=== PATIENT | male | born 1995 | race Caucasian/White ===

== ENCOUNTER 2017-03-04 18:09 | Emergency (ER) | payer OTHER ==
[~2017-03-04 18:09] MED LIST: ISOVUE-370 76%-LOCM 1 ML ONE
[2017-03-04] MEDS ORDERED: Morphine 4 MG/ML Carpuject ONE ×2 (20:09→21:20)
[2017-03-04] MEDS ORDERED: methylPREDNISolone Sod Succ/PF 125 MG/2 ML VIAL ONE (20:09)
[2017-03-04] MEDS ORDERED: Ondansetron HCl/PF 4 MG/2 ML Vial ONE (20:17)
[2017-03-04 21:06] LABS: ALT (SGPT) 19 U/L (8-55); AST (SGOT) 17 U/L (5-34); Albumin 4.7 g/dL (3.5-5.0); Alkaline Phosphatase 103 U/L (40-150); Anion Gap 20 mmol/L (10-20); BUN (Urea Nitrogen) 13 mg/dL (8.9-20.6); Bilirubin, Total 0.9 mg/dL (0.2-1.2); Calc. Creatinine Clearance 0 mL/min (70-130); Calcium 10.6 mg/dL (7.8-10.44); Carbon Dioxide 20 mmol/L (22-29); Chloride 104 mmol/L (98-107); Estimated GFR-MDRD 76; Globulin 4.4 g/dL (2.4-3.5); Glucose 100 mg/dL (70-105); Lipase 29 U/L (8-78); Potassium 4.1 mmol/L (3.5-5.1); Protein, Total 9.1 g/dL (6.0-8.3); Sodium 140 mmol/L (136-145)
[2017-03-04 21:28] LABS: Hemoglobin 15.2 g/dL (14.0-18.0); Lymphocytes 14 % (21-51); MDiff Complete? YES; Mean Corpuscular HGB CONC 32.5 g/dL (32.0-36.0); Mean Corpuscular Hemoglobin 28.1 pg (27.0-31.0); Mean Corpuscular Volume 86.5 fl (80.0-94.0); Mean Platelet Volume 11.5 fL (7.4-10.4); Monocytes 4 % (0-10); Neutrophil 80 % (42-75); PLT Morphology Comment PLT clumps seen-ADEQ; RBC Distribution Width 12.7 % (11.5-14.5); White Blood Cell (WBC) Count 15.3 thou/uL (4.8-10.8)
--- NOTE | 2017-03-04 22:19 | CT ---
CT ABDOMEN AND PELVIS WITH IV CONTRAST 03/04/17 PROVIDED CLINICAL HISTORY: Back pain. FINDINGS: Comparison is made with the study dated 03/14/16. The visualized lung bases are free of significant opacity. There is an 8-9 mm calculus present in the inferior pole of the right kidney. There is moderate-sever e right hydronephrosis and right hydroureter. There are two ureteral calculi present in the distal ri ght ureter. The smaller of these measures less than 1 mm. The large measures about 7 mm and is close to the UV junction. No additional urinary tract calculi are evident. There is no bowel dilatation, inflammatory fat stranding, free fluid or free air apparent. Changes of prior colostomy are again noted in the right lower quadrant. The osseous structures demonstrate no concerning osteoblastic or osteolytic lesions. IMPRESSION: 1. Obstructing distal right ureteral calculi. 2. Right renal calculus. POS: [facility]
[2017-03-04 23:04] LABS: Bilirubin Negative (Negative); Blood, Urine Moderate (Negative); Clarity CLEAR (Clear); Glucose, Urine (Dipstick) Negative (Negative); Leukocyte Negative (Negative); Nitrite Negative (Negative); Protein, Urine (Dipstick) Negative (Neg-Trace); Specific Gravity, Urine 1.044 (1.002-1.036); Urobilinogen 0.2 mg/dL (0.2-1.0)
[2017-03-04 23:06] LABS: Bacteria/HPF None Seen HPF (None Seen); Hyaline Casts/LPF 0-3 HYALINE CAST LPF (0-3 Hyaline); RBC/HPF 21-50 HPF (0-3); Squamous Epithelial None Seen HPF (0-3); WBC/HPF 0-3 HPF (0-3)
== END 2017-03-05 00:15 | disposition home or self-care (01) ==
LOC: ERS 18:09
DX: N13.2 Hydronephrosis with renal and ureteral calculous obstruction (principal); F17.200 Nicotine dependence, unspecified, uncomplicated
CPT/HCPCS: 74177; 80053; 81003; 81015; 83690; 85025; 96374; 96375; 96376; 99406; J2270; J2405; J2930

== ENCOUNTER 2018-05-04 01:49 | Emergency (ER) | payer OTHER ==
[2018-05-04] MEDS ORDERED: Ondansetron PF 4 MG/2 ML Vial ONE (02:23)
[2018-05-04] MEDS ORDERED: Morphine 4 MG/ML VIAL ONE ×2 (02:23→03:41)
[2018-05-04 02:34] LABS: Mean Corpuscular HGB CONC 33.3 g/dL (32.0-36.0); Mean Corpuscular Hemoglobin 28.4 pg (27.0-31.0); Mean Corpuscular Volume 85.1 fL (78.0-98.0); Mean Platelet Volume 9.2 fL (7.4-10.4); Platelet Count 377 thou/uL (130-400); RBC Distribution Width 12.3 % (11.5-14.5); Red Blood Cell (RBC) Count 4.94 mill/uL (4.70-6.10); White Blood Cell (WBC) Count 15.3 thou/uL (4.8-10.8)
[2018-05-04 02:35] LABS: Eosinophils 2 % (0-10); Lymphocytes 51 % (21-51); MDiff Complete? YES; Monocytes 11 % (0-10); Neutrophil 36 % (42-75); Platelet Morphology Comment Appears Adequate
[2018-05-04 02:42] LABS: ALT (SGPT) 13 U/L (8-55); AST (SGOT) 15 U/L (5-34); Albumin 4.4 g/dL (3.5-5.0); Alkaline Phosphatase 88 U/L (40-150); Anion Gap 18 mmol/L (10-20); BUN (Urea Nitrogen) 13 mg/dL (8.9-20.6); Bilirubin, Total 0.6 mg/dL (0.2-1.2); Calc. Creatinine Clearance 0 mL/min (70-130); Calcium 9.7 mg/dL (7.8-10.44); Carbon Dioxide 21 mmol/L (22-29); Chloride 103 mmol/L (98-107); Estimated GFR-MDRD 89; Globulin 4.2 g/dL (2.4-3.5); Glucose 113 mg/dL (70-105); Potassium 3.4 mmol/L (3.5-5.1); Protein, Total 8.6 g/dL (6.0-8.3); Sodium 139 mmol/L (136-145)
[2018-05-04] MEDS ORDERED: Ketorolac Tromethamine 30 MG/ML VIAL ONE (03:14)
[2018-05-04 03:42] LABS: Bilirubin Small (Negative); Blood, Urine Large (Negative); Glucose, Urine (Dipstick) Negative (Negative); Leukocyte Trace (Negative); Nitrite Negative (Negative); Protein, Urine (Dipstick) 100 mg/dL (Neg-Trace); Urobilinogen 0.2 mg/dL (0.2-1.0); pH, Urine 5.5 (5.0-9.0)
[2018-05-04 03:43] LABS: Clarity Cloudy (Clear)
[2018-05-04 03:45] LABS: Bacteria/HPF None Seen HPF (None Seen); Hyaline Casts/LPF NONE SEEN LPF (0-3 Hyaline); Other Microscopic Description Less than 2 mL rec'd; RBC/HPF 0-3 HPF (0-3); Squamous Epithelial 0-3 HPF (0-3); Yeast-All Forms 2+ HPF (None Seen)
--- NOTE | 2018-05-04 08:38 | CT ---
CT ABDOMEN AND PELVIS WITHOUT CONTRAST: INDICATIONS: Left flank pain. COMPARISON: Reference made to the 03/04/2017 exam. FINDINGS: A moderate-sized inferior pole right renal calculus is present, previously measured at 9 mm, now tony uring 15 mm. There is faint calcification at the lower pole of the left kidney, as well. A 2-3 mm l eft UVJ calculus is present, with mild associated left hydroureteronephrosis. No evidence of right-s ided obstructive uropathy. A right lower quadrant ostomy is again seen. The imaged lung bases revea l no significant pathology. The bowel, solid abdominal organs, vasculature, and lymph nodes are limi yue in assessment on the basis of noncontrast technique. No acute osseous pathology. IMPRESSION: 1. Punctate, 2-3 mm left ureterovesicular junction calculus with mild left obstructive uropathy. 2. Bilateral nephrolithiasis, progressive in size. Recommend followup with urology consultation. POS: [facility]
== END 2018-05-04 04:36 | disposition home or self-care (01) ==
LOC: ERS 01:49
DX: N13.2 Hydronephrosis with renal and ureteral calculous obstruction (principal); F17.210 Nicotine dependence, cigarettes, uncomplicated
CPT/HCPCS: 74176; 80053; 81003; 81015; 83690; 85025; 87086; 96361; 96374; 96375; 96376; 99406; J1885; J2270; J2405